=== PATIENT | female | born 1940 | race Caucasian/White ===

== ENCOUNTER 2016-11-26 06:07 | Day surgery (SDC) | payer MEDICARE ==
[~2016-11-26] VITALS: Ht 152.4 cm; Wt 64.6 kg
[~2016-11-26 06:07] MED LIST: ASPI81TA84 PO; CALC625T32 PO; CHOL100017 PO; FAMO40TA5 PO; KRIL500C PO; LEVO75TA50 PO; LISI1TAB83 PO; METF-200 PO; MULT-933 PO; OMEP-29 PO; SIMV20TA89 PO
[2016-11-26 06:11] VITALS: BP 122/67; PULSE 82; RESP 16; TEMP 98.6; O2SAT 96; Ht 152.4 cm; Wt 64.6 kg
[2016-11-26] MEDS ORDERED: FLEET PHOSPHO-SODA 133 ML ENEMA RECTALLY PRN (06:45)
[2016-11-26] MEDS ORDERED: LR 1,000 ML IV SCH (07:00)
[2016-11-26] MEDS ORDERED: LIDOCAINE 1% (10mg/ml) 2ml SDV INJ ONE (07:00)
[2016-11-26] MEDS ORDERED: [UNRECOGNIZED DRUG - REMARK] PO (07:04)
[2016-11-26] MEDS ORDERED: LIDOCAINE 1% (10mg/ml) 2ml SDV ONE (07:38)
[2016-11-26] MEDS ORDERED: PROPOFOL 500mg 50 ML IV ONE (07:38)
[2016-11-26 08:28] VITALS: BP 112/60; PULSE 68; RESP 14; TEMP 96.9; O2SAT 95
--- NOTE | 2016-11-26 08:42 | ANESPREOP ---
Anesthesia Record Date and Time DATE: 11/26/16 TIME: 08:40 Pre-Op Diagnosis rectal bleeding Proposed Surgical Procedure COLONOSCOPY Allergies: Coded Allergies: niacin (Unverified Allergy, Unknown, 11/26/16) Ht/Wt/BMI Height: 5 ' 0.00 " Weight: 64.600 kg BMI: 27.8 kg/m2 Vital Signs Date Time Temp Pulse Resp B/P Pulse Ox O2 Delivery O2 Flow Rate FiO2 11/26/16 08:28 96.9 68 14 112/60 95 Room Air Medications Inpatient Medications Current Medications Medications (Trade) Dose Ordered Sig/Prisca Start Time Stop Time Status Last Admin Dose Admin Lactated Ringer's (Lactated Ringers) 1,000 ml @ 50 mls/hr Q20H 11/26/16 07:00 11/26/16 06:57 50 MLS/HR Sodium Biphosphate/ Sodium Phosphate (Fleet Enema) 1 enema PRN PRN 11/26/16 06:45 11/26/16 06:55 1 ENEMA Aspirin (Adult Low Strength Aspirin) 81 Mg Tablet.dr, 81 MG PO DAILY, (Reported) Last Taken: on 11/23/162199 Calcium Polycarbophil (Fiber Tabs) 625 Mg Tablet, 1 TAB PO DAILY, (Reported) Last Taken: on 11/24/16 0800 Cholecalciferol (Vitamin D) 1,000 Unit Tablet, 2,000 UNIT PO DAILY, (Reported) Last Taken: on 11/23/16 0200 Famotidine (Famotidine) 40 Mg Tablet, 1 TAB PO HS, (Reported) Last Taken: on 11/23/16 220 Krill Oil (Krill Oil) 500 Mg Capsule, 1 CAP PO DAILY, (Reported) Last Taken: on 11/24/16 0800 Levothyroxine Sodium (Levoxyl) 75 Mcg Tablet, 75 MCG PO DAILY, (Reported) Last Taken: on 11/24/16 0800 Lisinopril/Hydrochlorothiazide (Lisinopril- Hctz 10/12.5 Tablet) 1 Tab Tablet, 0.5 TAB PO DAILY, (Reported) Last Taken: on 11/25/16 2200 Metformin Hcl (Metformin Hcl) 500 Mg Tablet, 1 TAB PO DAILY, (Reported) Last Taken: on 11/24/16 0800 Multivitamin (Multi-Day Vitamins) 1 Each Tablet , 1 TAB PO DAILY, (Reported) Last Taken: on 11/24/16 08 Omeprazole (Prilosec) 20 Mg Capsule.dr, 20 MG PO ACB, (Reported) Last Taken: on 11/25/162199 Simvastatin (Simvastatin) 20 Mg Tablet, 1 TAB PO HS, (Reported) Last Taken: on 11/25/162199 [Vinegar Pill] , 1 TAB PO DAILY, (Reported) Last Taken: on 11/24/16 0800 Currently on Beta Katie: No Medical/Surgical History Anesthesia PMH: Reports: *Diabetes, *Hypertension (CONTROLLED WITH MEDS), Cancer (TUBULAR ADENOMA OF COLON ), Hiatal Hernia, Hyperlipidemia, Reflux, Rheumatic Fever (AT AGE 40YR), Thyroid Disease (HYPOTHYROID), Denies: *Angina, * Dyspnea, *AL, Anesthesia Reactions (NO AIRWAY ISSUES), Arthritis, Asthma, Blood Transfusion Reac, CHF, COPD, CVA/Stroke/TIA, Clotting Problems, Deep Vein Thrombosis, Glaucoma, Hepatitis, Malignant Hyperthermia, Pneumonia, Renal Disease, Seizures, Sleep Apnea, Tuberculosis Smoking Status: Never smoker Has pt. smoked today?: No Use Chewing Tobacco?: No Substance Use Type: does not use Substance last used: unknown Alcohol Intake: none Last Drink: unknown HX of Last Menstrual Period: HYST. Past Surgical History Orthopedic Surgeries: No Abdominal Surgeries: Yes - BAIBTA Genitourinary Surgeries: No Cardiac Surgeries: Yes - HEART CATH 01/11 Endocrine Surgeries: No Reproductive Surgeries: Yes - HYST Neurological Surgeries: No Ear Surgeries: No Nose Surgeries: No Throat Surgeries: Yes - EGD WITH DILATATION Other Surgeries: Yes - COLONOSCOPY 03/06 Anesthesia Adverse Reactions: FOUND none Family Hx of Anesthesia Advers: none Hx of Motion Sickness: No Pertinent Findings EKG Rhythm: Sinus Arhythmia Physical Exam Respiratory: Bilat breath sounds equal, Lungs clear Cardiovascular: FOUND Regular rate, rhythm, FOUND No murmur Airway Assessment Mallampati Score: I TMD: 3 Fingerbreadths Neck Extension: Good Overall Assessment: No Airway Concerns ASA: 2 Plan Anesthesia Plan: TIVA Discussion Discussed risks/options/alternatives of anesthesia and questions answered. Patient consents. Nursing pain assessment noted. Present: Spouse Attestation Statement Prior to the delivery of any anesthetic medication, I examined the patient, developed the plan, obtained the patient's consent and discussed the risk and benefits of the procedure with the patient/guardian. JOSY PRIEST CRNA Nov 26, 2016 08:42
[2016-11-26 08:43] VITALS: BP 124/71; PULSE 68; RESP 14; O2SAT 95
--- NOTE | 2016-11-26 08:44 | ANESPO ---
Post-Op Note Date 11/26/16 Time: 08:43 Status Pt Participated in Evaluation: Pt participated in person Vital Signs Date Time Temp Pulse Resp B/P Pulse Ox O2 Delivery O2 Flow Rate FiO2 11/26/16 08:28 96.9 68 14 112/60 95 Room Air Respiratory Function: Airway patent Cardiovascular Function: Regular pulse Mental Status: Alert/oriented Pain Level Intensity: 0 Hydration: Taking po fluids, IV infusing Complications during Recovery None apparent Post-Anesthesia Notes pt. [email or web address] Follow-Up Instructions Instructions Per Surgeon Additional Information none JOSY PRIEST CRNA Nov 26, 2016 08:44
[2016-11-26 08:58] VITALS: BP 122/64; PULSE 64; RESP 18; TEMP 96.8; O2SAT 96
--- NOTE | 2016-11-26 13:23 | OPNOTEF ---
DATE: 11/26/2016 SURGEON: Obi Denney MD PREOPERATIVE DIAGNOSIS: Rectal bleeding and history of colon polyps. POSTOPERATIVE DIAGNOSIS: Fairly marked inflammatory changes noted from approximately 55 cm to 80 cm in the sigmoid colon with several small patches of inflammatory changes at 20 cm and 40 cm. One slightly smooth polypoid lesion noted at 15-20 cm as well. PROCEDURE: Colonoscopy with multiple biopsies of inflammatory changes from 55 cm to 80 cm in the proximal sigmoid just distal to the splenic flexure, also biopsy at 40 cm of a small patch of inflammation and another biopsy at 20 cm of a similar small patch of inflammation. A slightly prominent area of mucosa was biopsied at 15 cm which appeared to be a smooth-appearing polyp. The ascending colon, cecum and transverse colon showed no significant abnormalities with only a few small diverticula noted. No evidence of active hemorrhage was noted. The rectum and anus were clear. The colon was suctioned and the scope removed with patient tolerating procedure well. FINAL DIAGNOSES 1. Rectal bleeding. 2. History of colon polyps. 3. Fairly marked inflammatory changes with edema, erythema and distortion of the proximal sigmoid colon with smaller patches at 20 cm and 40 cm. Biopsies all pending from these areas as well as from a prominent mucosal area at 20 cm. The patient tolerated procedure well, was stable post colonoscopy. Followup as indicated by path and further evaluation. [facility]
== END 2016-11-26 09:08 | disposition home or self-care (01) ==
LOC: SCU 06:07
DX: K62.5 Hemorrhage of anus and rectum (principal); K52.9 Noninfective gastroenteritis and colitis, unspecified; K63.89 Other specified diseases of intestine; D12.7 Benign neoplasm of rectosigmoid junction; K57.30 Diverticulosis of large intestine without perforation or abscess without bleeding; R73.03 Prediabetes; Z86.010 Personal history of colon polyps; Z79.84 Long term (current) use of oral hypoglycemic drugs
CPT/HCPCS: 45380; 82948; A9270; J7120